=== PATIENT | male | born 1935 | race Caucasian/White ===

== ENCOUNTER 2016-07-25 10:06 | Emergency (ER) | payer MEDICARE, OTHER ==
--- NOTE | 2016-07-25 11:03 | ER Document Report ---
ED Medical Screen (RME) - General Chief Complaint: Dizziness Stated Complaint: DIZZINESS Time seen by provider: 11:00 Mode of Arrival: Wheelchair Information source: Patient, Relative TRAVEL OUTSIDE OF THE [place]. IN LAST 30 DAYS: No - HPI Patient complains to provider of: DIZZINESS Onset: Other - COUPLE OF DAYS Onset/Duration: Intermittent Quality of pain: No pain Severity: None Pain Level: Denies Associated Symptoms: Dizzy/lightheaded, Headache, Shortness of breath. denies: Chest pain, Fever Exacerbated by: Movement Relieved by: Remaining still Similar symptoms previously: No Recently seen / treated by doctor: No Notes: 07/25/16 11:03 RECENTLY VOMITING AND DIARRHEA OVER JUVENAL - Related Data Smoking: Non-smoker Frequency of alcohol use: None Drug Abuse: None Pertinent History: CAD DEMENTIA HTN VALVE REPLACEMENT CARDIAC BYPASS Allergies/Adverse Reactions: No Known Allergies Allergy (Verified 07/25/16 10:43) Past Medical History - Past Medical History Cardiac Medical History: Reports: Hx Hypercholesterolemia, Hx Hypertension Past Surgical History: Reports: Hx Cholecystectomy, Hx Coronary Artery Bypass Graft, Hx Valve Replacement Physical Exam - Vital signs Vitals: Temp Pulse Resp BP Pulse Ox 97.9 F 60 18 129/48 H 97 07/25/16 10:24 07/25/16 10:24 07/25/16 10:24 07/25/16 10:24 07/25/16 10:24 Course - Vital Signs Vital signs: Temp Pulse Resp BP Pulse Ox 97.9 F 60 18 129/48 H 97 07/25/16 10:24 07/25/16 10:24 07/25/16 10:24 07/25/16 10:24 07/25/16 10:24
[2016-07-25 12:04] LABS: ABSOLUTE BASOPHILS # (AUTO) 0.1 10^3/uL (0.0-0.2); ABSOLUTE EOSINOPHILS # (AUTO) 0.2 10^3/uL (0.0-0.6); ABSOLUTE LYMPHOCYTES (AUTO) 1.4 10^3/uL (0.5-4.7); ABSOLUTE MONOCYTES (AUTO) 0.5 10^3/uL (0.1-1.4); ABSOLUTE NEUT (AUTO) 6.1 10^3/uL (1.7-8.2); BASOPHILS % (AUTO) 0.7 % (0-2); EOSINOPHILS % (AUTO) 2.1 % (0-6); HEMATOCRIT 36.7 % (37.9-51.0); HEMOGLOBIN 12.1 g/dL (13.5-17.0); HGB HCT DIFFERENCE -0.4; MEAN CORPUSCULAR HGB CONC 33.1 g/dL (32.0-36.0); MEAN CORPUSCULAR VOLUME 88 fl (80-97); MONOCYTES % (AUTO) 5.9 % (3-13); RED BLOOD COUNT 4.18 10^6/uL (4.35-5.55); RED CELL DISTRIBUTION WIDTH 13.3 % (11.5-14.0); SEGMENTED NEUTROPHILS % (AUTO) 74.3 % (42-78); WHITE BLOOD COUNT 8.2 10^3/uL (4.0-10.5)
[2016-07-25 12:19] LABS: ALANINE AMINOTRANSFERASE 33 U/L (21-72); ALBUMIN 3.4 g/dL (3.5-5.0); ALKALINE PHOSPHATASE 56 U/L (38-126); ANION GAP 12 (5-19); ASPARTATE AMINO TRANSFERASE 19 U/L (17-59); BILIRUBIN,TOTAL 0.4 mg/dL (0.2-1.3); BLOOD UREA NITROGEN 16 mg/dL (7-20); CALCIUM 9.1 mg/dL (8.4-10.2); CARBON DIOXIDE 28 mmol/L (22-30); CHLORIDE 104 mmol/L (98-107); CREATINE KINASE 25 U/L (55-170); CREATININE RESULT 0.82 mg/dL (0.52-1.25); GLUCOSE 90 mg/dL (75-110); POTASSIUM 4.2 mmol/L (3.6-5.0); SODIUM 143.5 mmol/L (137-145); TOTAL PROTEIN 6.7 g/dL (6.3-8.2)
[2016-07-25 12:31] LABS: CREATINE KINASE MB 1.14 ng/mL (<4.55); TROPONIN I < 0.012 ng/mL
[2016-07-25 12:48] LABS: PROTHROMBIN TIME 51.8 SEC (11.4-15.4)
--- NOTE | 2016-07-25 13:09 | ER Document Report ---
ED General - General Chief Complaint: Dizziness Stated Complaint: DIZZINESS Mode of Arrival: Wheelchair Notes: This is an 81-year-old male who is on Coumadin due to a mechanical valve who presents complaining of an abnormal INR. He was sent from the [place] where his INR was reportedly greater than 7. He did have a nosebleed this morning which stopped after a few seconds of holding pressure. He had reported feeling dizzy earlier today but states he is feeling fine at this time. No recent trauma. He has not hit his head. No visual changes. No nausea or vomiting. No focal numbness, weakness or tingling. He denies any hematuria or any GI bleeding. TRAVEL OUTSIDE OF THE [place] IN LAST 30 DAYS: No - HPI Quality of pain: No pain - Related Data Allergies/Adverse Reactions: No Known Allergies Allergy (Verified 07/25/16 10:43) Past Medical History - General Information source: Patient, Relative - Social History Smoking Status: Never Smoker Frequency of alcohol use: None Drug Abuse: None Lives with: Family, Spouse/Significant other Family History: Reviewed & Not Pertinent Patient has suicidal ideation: No Patient has homicidal ideation: No - Past Medical History Cardiac Medical History: Reports: Hx Hypercholesterolemia, Hx Hypertension Past Surgical History: Reports: Hx Cholecystectomy, Hx Coronary Artery Bypass Graft, Hx Valve Replacement Review of Systems - Review of Systems Constitutional: denies: Fever EENT: denies: Double vision, Throat pain, Difficulty swallowing Cardiovascular: denies: Syncope Respiratory: denies: Short of breath Gastrointestinal: denies: Vomiting, Black stools Genitourinary: denies: Hematuria Musculoskeletal: denies: Leg swelling Skin: denies: Rash Neurological/Psychological: denies: Numbness, Tingling Physical Exam - Vital signs Vitals: Temp Pulse Resp BP Pulse Ox 97.9 F 60 18 129/48 H 97 07/25/16 10:24 07/25/16 10:24 07/25/16 10:24 07/25/16 10:24 07/25/16 10:24 - Notes Notes: GENERAL: Well-appearing, well-nourished and in no acute distress. HEAD: Atraumatic, normocephalic. EYES: Pupils equal round and reactive to light, extraocular movements intact, sclera anicteric, conjunctiva are normal. ENT: nares patent- there is some dried blood in the right nostril, oropharynx clear without exudates. Moist mucous membranes. NECK: Normal range of motion, supple without lymphadenopathy or JVD. LUNGS: Breath sounds clear to auscultation bilaterally and equal. No wheezes rales or rhonchi. HEART: Regular rate and rhythm, positive murmur ABDOMEN: Soft, nontender, normoactive bowel sounds. No guarding, no rebound. No masses appreciated. EXTREMITIES: Normal range of motion, no pitting or edema. No clubbing or cyanosis. NEUROLOGICAL: Cranial nerves II through XII grossly intact. Normal speech, normal strength 4 extremities PSYCH: Normal mood, normal affect. SKIN: Warm, Dry, normal turgor, no rashes or lesions noted. Course - Re-evaluation Re-evalutation: 07/25/16 14:30 Mildly supratherapeutic INR with no active bleeding. Head CT is negative. We will allow his INR to drift down by holding Coumadin for 2 doses and have him follow-up for recheck in 2 days. - Vital Signs Vital signs: Temp Pulse Resp BP Pulse Ox 98.2 F 60 17 133/53 H 96 07/25/16 14:12 07/25/16 10:24 07/25/16 14:12 07/25/16 14:12 07/25/16 14:12 - Laboratory Result Diagrams: 07/25/16 11:31 07/25/16 11:31 Laboratory results interpreted by me: 07/25/16 07/25/16 07/25/16 11:31 11:31 11:31 RBC 4.18 L Hgb 12.1 L Hct 36.7 L PT 51.8 H* INR 5.37 H* Creatine Kinase 25 L Albumin 3.4 L Discharge - Discharge Clinical Impression: Dizziness, Supratherapeutic INR Condition: Good Disposition: HOME, SELF-CARE Additional Instructions: Hold Coumadin today (sunday) and tomorrow (sunday). Follow up on for re-check on INR and further reccomendations regarding your dose. RETURN to ER i fyou have any significant bleeding or injury. Referrals: SHAYE NGUYEN MD [Primary Care Provider] - Follow up as needed
--- NOTE | 2016-07-25 13:13 | EKG REPORT ---
SEVERITY:- ABNORMAL ECG - SINUS RHYTHM RIGHT BUNDLE BRANCH BLOCK : Confirmed by: Vahid Samano 25-Jul-2016 13:13:17
[2016-07-25 14:20] VITALS: BP 133/53
== END 2016-07-25 14:21 | disposition home or self-care (01) ==
LOC: ER 10:06
DX: R42 Dizziness and giddiness (principal); I10 Essential (primary) hypertension; Z95.1 Presence of aortocoronary bypass graft; Z95.2 Presence of prosthetic heart valve; Z79.01 Long term (current) use of anticoagulants
CPT/HCPCS: 36415; 70450; 71020; 80053; 82550; 82553; 84484; 85025; 85610; 93005; 93010; 99284

== ENCOUNTER 2017-05-13 03:31 | Emergency (ER) | payer MEDICARE, OTHER ==
--- NOTE | 2017-05-13 04:33 | ER Document Report ---
ED General <GABRIELA VILLAREALLINE - Last Filed: 05/13/17 13:22> - General TRAVEL OUTSIDE OF THE U.S. IN LAST 30 DAYS: No <JALEN DAMON - Last Filed: 05/13/17 19:05> - General Chief Complaint: Nausea/Vomiting Stated Complaint: NAUSEA,VOMITING Time Seen by Provider: 05/13/17 04:24 Notes: Patient is an 82-year-old male that comes emergency department for chief complaint of vomiting twice over the past 2 days, body aches, chills, and they believe he was running a fever. He is here with his family. He denies any current complaints. Family states he never complains about anything. He denies chest pain, shortness of breath, abdominal pain, flank pain, headache, sore throat. Past medical history of's triple bypass, mechanical heart valve on blood thinner, hypertension, cholecystectomy. He is not a diabetic. He has had the flu vaccination this season and is up-to-date on his pneumonia vaccination. He does not smoke. (JALEN DAMON) - Related Data Allergies/Adverse Reactions: No Known Allergies Allergy (Verified 07/25/16 10:43) Past Medical History - General Information source: Patient - Social History Smoking Status: Never Smoker Frequency of alcohol use: None Drug Abuse: None Lives with: Family Family History: Reviewed & Not Pertinent - Past Medical History Cardiac Medical History: Reports: Hx Hypercholesterolemia, Hx Hypertension Renal/ Medical History: Denies: Hx Peritoneal Dialysis Past Surgical History: Reports: Hx Cholecystectomy, Hx Coronary Artery Bypass Graft, Hx Valve Replacement <JALEN DAMON - Last Filed: 05/13/17 19:05> Review of Systems - Review of Systems Constitutional: See HPI EENT: No symptoms reported Cardiovascular: See HPI Respiratory: No symptoms reported Gastrointestinal: See HPI Genitourinary: No symptoms reported Male Genitourinary: No symptoms reported Musculoskeletal: No symptoms reported Skin: No symptoms reported Hematologic/Lymphatic: No symptoms reported Neurological/Psychological: No symptoms reported <JALEN DAMON - Last Filed: 05/13/17 19:05> Physical Exam - Vital signs Interpretation: Normal - General General appearance: Appears well, Alert In distress: None - HEENT Head: Normocephalic, Atraumatic Eyes: Normal Pupils: PERRL - Respiratory Respiratory status: No respiratory distress Chest status: Nontender Breath sounds: Normal Chest palpation: Normal - Cardiovascular Rhythm: Regular, Extrasystoles. No: Tachycardia Heart sounds: Normal auscultation, S1 appreciated, S2 appreciated Murmur: Yes - Heart murmur with clicking noted - Abdominal Inspection: Normal Distension: No distension Bowel sounds: Normal Tenderness: Nontender. No: Tender, Guarding Organomegaly: No organomegaly - Back Back: Normal, Nontender - Extremities General upper extremity: Normal inspection, Nontender, Normal color, Normal ROM , Normal temperature General lower extremity: Normal inspection, Nontender, Normal color, Normal ROM , Normal temperature, Normal weight bearing. No: Kelly's sign - Neurological Neuro grossly intact: Yes Cognition: Normal Orientation: AAOx4 Ketchum Coma Scale Eye Opening: Spontaneous Rima Coma Scale Verbal: Oriented Ketchum Coma Scale Motor: Obeys Commands Rima Coma Scale Total: 15 Speech: Normal Motor strength normal: LUE, RUE, LLE, RLE Sensory: Normal - Psychological Associated symptoms: Normal affect, Normal mood - Skin Skin Temperature: Warm Skin Moisture: Dry Skin Color: Normal <JALEN DAMON - Last Filed: 05/13/17 19:05> - Vital signs Vitals: Temp Pulse Resp BP Pulse Ox 98.6 F 62 16 114/32 L 93 05/13/17 03:56 05/13/17 03:56 05/13/17 03:56 05/13/17 03:56 05/13/17 03:56 Course - Laboratory Result Diagrams: 05/13/17 05:05 05/13/17 05:05 <DAYSI VILLAREAL - Last Filed: 05/13/17 13:22> - Laboratory Result Diagrams: 05/13/17 05:05 05/13/17 05:05 <JALEN DAMON - Last Filed: 05/13/17 19:05> - Re-evaluation Re-evalutation: 05/13/17 08:25 Patient resting quietly, continues to deny any chest pain, respirations unlabored and even, son-in-law at bedside, and vital signs stable. Awaiting repeat troponin. 05/13/17 09:02 Call placed to [facility] for transfer waiting for Dr. Aviles's response 05/13/17 09:[address] Сергей Aviles who has agreed to take the patient for non- STEMI with no chest pain at this time. Patient will be transferred to [facility]. Awaiting transfer call back for bed placement. 05/13/17 13:22 EMS at bedside for transfer to [facility]. Patient continues to deny any discomfort. He states he does not have any chest pain no nausea no vomiting no abdominal pain. He is on the stretcher and ready to go to [facility] for a non-STEMI. Respirations regular even unlabored and speaking in full sentences. at the bedside. (DAYSI VILLAREAL) EKG showing sinus rhythm at a rate of 73 with PACs present, right bundle branch block consistent with prior, no ST segment changes or T-wave inversions in consecutive leads, no significant change from prior. Chest x-ray unremarkable. Patient with no complaints on my examination, soft abdomen. Leukocytosis at 19.6, however this is nonspecific with no fever, no tachycardia , no hypotension, soft abdomen, chest x-ray unremarkable, urinalysis unremarkable other than showing evidence of dehydration. Could be secondary to vomiting. Troponin elevated above [place] cut off at 0.149. Patient given aspirin. His PT/INR is therapeutic for his mechanical heart valve. Discussed with Dr. Bush. Concerning for NSTEMI. Discussed with family, they prefer [facility] to be consulted for transfer. Patient has had his triple bypass and mechanical heart valve surgeries done at this location. 05/13/17 06:[address] Wilburn, he requests that a troponin be repeated at 8 AM to help further clarify patient's status before determining his placement location. 05/13/17 06:58 Introduced to Daysi Villareal ALLERGY NURSE at bedside. No current patient complaints. (JALEN DAMON) - Vital Signs Vital signs: Temp Pulse Resp BP Pulse Ox 98.6 F 62 15 128/87 H 97 05/13/17 03:56 05/13/17 03:56 05/13/17 13:08 05/13/17 13:08 05/13/17 10:31 - Laboratory Laboratory results interpreted by me: 05/13/17 05/13/17 05/13/17 05:05 05:05 05:05 WBC 19.6 H RBC 4.15 L Hgb 12.3 L Hct 36.1 L RDW 14.1 H Seg Neuts % (Manual) 96 H Band Neutrophils % 1 L Lymphocytes % (Manual) 3 L Monocytes % (Manual) 0 L Abs Neuts (Manual) 19.0 H Abs Monocytes (Manual) 0.0 L PT 35.6 H Chloride 97 L BUN 27 H Creatinine 1.33 H Est GFR (Non-Af Amer) 51 L Glucose 114 H Lipase 21.9 L Discharge <DAYSI VILLAREAL - Last Filed: 05/13/17 13:22> <JALEN DAMON - Last Filed: 05/13/17 19:05> - Discharge Clinical Impression: NSTEMI (non-ST elevated myocardial infarction) Vomiting Qualifiers: Vomiting type: unspecified Vomiting Intractability: non-intractable Nausea presence: unspecified Qualified Code(s): R11.10 - Vomiting, unspecified Condition: Stable Disposition: [facility] Referrals: SHAYE NGUYEN MD [Primary Care Provider] - Follow up as needed
--- NOTE | 2017-05-13 05:14 | RADIOLOGY REPORT (SQ) ---
EXAM DESCRIPTION: CHEST SINGLE VIEW COMPLETED DATE/TIME: 05/13/2017 4:55 am REASON FOR STUDY: fever COMPARISON: Chest x-ray 07/25/2016. EXAM PARAMETERS: NUMBER OF VIEWS: One view. TECHNIQUE: Single frontal radiographic view of the chest acquired. RADIATION DOSE: NA LIMITATIONS: None. FINDINGS: LUNGS AND PLEURA: There are low lung volumes with bronchovascular crowding. Mild left bas ilar atelectasis. No sizable pleural effusion. MEDIASTINUM AND HILAR STRUCTURES: No masses. Contour normal. HEART AND VASCULAR STRUCTURES: Heart normal in size. Normal vasculature. BONES: No acute findings. HARDWARE: Sternotomy wires and cardiac valve prosthesis are noted. IMPRESSION: Low lung volumes. Mild left basilar atelectasis. TECHNICAL DOCUMENTATION: JOB ID: [id number]
[2017-05-13 05:42] LABS: HEMATOCRIT 36.1 % (37.9-51.0); HEMOGLOBIN 12.3 g/dL (13.5-17.0); HGB HCT DIFFERENCE 0.8; MEAN CORPUSCULAR HEMOGLOBIN 29.7 pg (27.0-33.4); MEAN CORPUSCULAR HGB CONC 34.2 g/dL (32.0-36.0); MEAN CORPUSCULAR VOLUME 87 fl (80-97); RED BLOOD COUNT 4.15 10^6/uL (4.35-5.55); RED CELL DISTRIBUTION WIDTH 14.1 % (11.5-14.0); WHITE BLOOD COUNT 19.6 10^3/uL (4.0-10.5)
[2017-05-13 05:46] LABS: ALANINE AMINOTRANSFERASE 26 U/L (21-72); ALKALINE PHOSPHATASE 64 U/L (38-126); ASPARTATE AMINO TRANSFERASE 21 U/L (17-59); BILIRUBIN,DIRECT 0.4 mg/dL (0.0-0.4); BILIRUBIN,TOTAL 0.9 mg/dL (0.2-1.3); BLOOD UREA NITROGEN 27 mg/dL (7-20); CALCIUM 9.1 mg/dL (8.4-10.2); CARBON DIOXIDE 29 mmol/L (22-30); CHLORIDE 97 mmol/L (98-107); CREATININE RESULT 1.33 mg/dL (0.52-1.25); GLUCOSE 114 mg/dL (75-110); LIPASE 21.9 U/L (23-300); POTASSIUM 4.3 mmol/L (3.6-5.0); TOTAL PROTEIN 6.9 g/dL (6.3-8.2)
[2017-05-13 05:51] LABS: APPEARANCE,URINE CLEAR; BILIRUBIN,URINE NEGATIVE (NEGATIVE); GLUCOSE, URINE NEGATIVE (NEGATIVE); KETONES,URINE NEGATIVE (NEGATIVE); LEUKOCYTE ESTERASE,URINE NEGATIVE (NEGATIVE); NITRITE,URINE NEGATIVE (NEGATIVE); PROTEIN,URINE NEGATIVE (NEGATIVE); URINE SPECIFIC GRAVITY 1.031; UROBILINOGEN,URINE NEGATIVE mg/dL (<2.0)
[2017-05-13 05:51] LABS: ANION GAP 11 (5-19); SODIUM 137.3 mmol/L (137-145)
[2017-05-13] MEDS ORDERED: NORMAL SALINE 1000 ML 500 ML IV ONE (05:56)
[2017-05-13] MEDS ORDERED: ASPIRIN 81 MG TABLET, CHEWABLE PO ONE (06:01)
[2017-05-13 06:13] LABS: BAND NEUTROPHILS % (MANUAL) 1 % (3-5); BASOPHILS % (MANUAL) 0 % (0-2); EOSINOPHILS % (MANUAL) 0 % (0-6); LYMPHOCYTES % (MANUAL) 3 % (13-45); TOTAL CELLS COUNTED 100
[2017-05-13 06:14] LABS: RBC MORPHOLOGY COMMENT NORMO-CYTIC/CHROMIC
[2017-05-13 06:17] LABS: PROTHROMBIN TIME 35.6 SEC (11.4-15.4)
--- NOTE | 2017-05-13 09:18 | EKG REPORT ---
SEVERITY:- ABNORMAL ECG - SINUS RHYTHM MULTIPLE ATRIAL PREMATURE COMPLEXES RIGHT BUNDLE BRANCH BLOCK : Confirmed by: Lucille De Anda MD 13-May-2017 09:17:56
[2017-05-13 13:14] VITALS: BP 128/87
== END 2017-05-13 13:15 | disposition short-term general hospital (02) ==
LOC: ER 03:31
DX: I21.4 Non-ST elevation (NSTEMI) myocardial infarction (principal); R11.2 Nausea with vomiting, unspecified; D72.829 Elevated white blood cell count, unspecified; R68.83 Chills (without fever); I49.1 Atrial premature depolarization; I45.10 Unspecified right bundle-branch block; I10 Essential (primary) hypertension; Z95.1 Presence of aortocoronary bypass graft; Z95.2 Presence of prosthetic heart valve; Z79.01 Long term (current) use of anticoagulants; Z90.49 Acquired absence of other specified parts of digestive tract
CPT/HCPCS: 93005; 99285; 51701; 36415; 87040; 82553; 82550; 83690; 85025; 85610; 80053; 81001; 84484; 83605; 87804; 71010; 93010; A9270; J7030

== ENCOUNTER 2017-10-10 11:41 | Emergency (ER) | payer MEDICARE, OTHER ==
[2017-10-10] MEDS ORDERED: DILTIAZEM HCL INJ 25 MG/5 ML VIAL ONE (12:15)
[2017-10-10] MEDS ORDERED: DILTIAZEM HCL/D5W 125 MG/125 ML RTUINJ IV ONE (12:16)
[2017-10-10] MEDS ORDERED: NORMAL SALINE 1000 ML 1,000 ML IV ONE (12:20)
--- NOTE | 2017-10-10 12:22 | ER Document Report ---
ED Cardiac - General Chief Complaint: Chest Pain Stated Complaint: CHEST PAIN Time Seen by Provider: 10/10/17 12:18 Notes: The patient is an 82-year-old male, past medical history CABG and mechanical aortic valve replacement in 2001 on Coumadin, dementia, HTN, presents from his control operator's office, Dr. Celis, after he was noticed to be in atrial fibrillation with RVR for an unknown time. Patient had a brief episode of left- sided chest pain last night, but is no longer having any chest pain or any other symptoms at this time. He denies numbness, tingling, syncope, chest pain , shortness of breath, nausea, vomiting, fevers, leg swelling or headache. TRAVEL OUTSIDE OF THE [place].S. IN LAST 30 DAYS: No - Related Data Allergies/Adverse Reactions: No Known Allergies Allergy (Verified 07/25/16 10:43) Past Medical History - General Information source: Patient - Social History Smoking Status: Unknown if Ever Smoked Family History: Reviewed & Not Pertinent - Past Medical History Cardiac Medical History: Reports: Hx Hypercholesterolemia, Hx Hypertension Renal/ Medical History: Denies: Hx Peritoneal Dialysis Past Surgical History: Reports: Hx Cholecystectomy, Hx Coronary Artery Bypass Graft, Hx Valve Replacement Review of Systems - Review of Systems Notes: REVIEW OF SYSTEMS: CONSTITUTIONAL: -fevers, -chills EENT: -eye pain, -difficulty swallowing, -nasal congestion CARDIOVASCULAR: +chest pain, -syncope. RESPIRATORY: -cough, -SOB GASTROINTESTINAL: -abdominal pain, -nausea, -vomiting, -diarrhea GENITOURINARY: -dysuria, -hematuria MUSCULOSKELETAL: -back pain, -neck pain SKIN: -rash or skin lesions. HEMATOLOGIC: -easy bruising or bleeding. LYMPHATIC: -swollen, enlarged glands. NEUROLOGICAL: -altered mental status or loss of consciousness, -headache, - neurologic symptoms PSYCHIATRIC: -anxiety, -depression. ALL OTHER SYSTEMS REVIEWED AND NEGATIVE. Physical Exam - Vital signs Vitals: Resp Pulse Ox 22 H 99 10/10/17 12:02 10/10/17 12:02 - Notes Notes: PHYSICAL EXAMINATION: GENERAL: Well-appearing, well-nourished and in no acute distress. HEAD: Atraumatic, normocephalic. EYES: Pupils equal round and reactive to light, extraocular movements intact, sclera anicteric, conjunctiva are normal. ENT: nares patent, oropharynx clear without exudates. Moist mucous membranes. NECK: Normal range of motion, supple without lymphadenopathy LUNGS: Breath sounds clear to auscultation bilaterally and equal. No wheezes rales or rhonchi. HEART: Irregularly irregular rhythm. ABDOMEN: Soft, nontender, normoactive bowel sounds. No guarding, no rebound. No masses appreciated. EXTREMITIES: Normal range of motion, no pitting or edema. No cyanosis. NEUROLOGICAL: Cranial nerves grossly intact. Normal speech, normal gait. Normal sensory and motor exams. PSYCH: Normal mood, normal affect. SKIN: Warm, Dry, normal turgor, no rashes or lesions noted. Course - Re-evaluation Re-evalutation: Patient with a brief episode of chest pain last night that quickly resolved. He is in A. fib RVR on arrival to the ER with normal blood pressure and he is currently asymptomatic. His INR is therapeutic. Troponin is 2.7. EKG shows A. fib w/ RVR. Diltiazem provided to patient and will start him on a diltiazem drip. Patient requires transfer to facility with peanut farmer for further evaluation and treatment. His cardiac surgeon is at [facility] and he was just discharged a few months ago from [facility] for a possible NSTEMI. 10/10/17 13:33 Called [facility] to initiate transfer for NSTEMI. 10/10/17 14:[address] Aviles ([facility] Hospitalist) and he has accepted patient. Pt's HR is in 80's and BP is 95/65 (MAP 73) after Diltiazem bolus and drip. He continues without any chest pain or any other complaints. Repeat EKG does not show a STEMI. Spoke to his primary care physician, Dr. Martin, to update him. 10/10/17 15:55 Transport in ED. Pt's HR in 90's-low 100's and BP is 110/62. Pt continues without any symptoms. Stable for transport. - Vital Signs Vital signs: Temp Pulse Resp BP Pulse Ox 97.6 F 23 H 110/62 98 10/10/17 15:26 10/10/17 15:37 10/10/17 15:37 10/10/17 15:37 - Laboratory Result Diagrams: 10/10/17 12:05 10/10/17 12:05 Laboratory results interpreted by me: 10/10/17 10/10/17 10/10/17 12:05 12:05 12:05 WBC 10.8 H Hgb 13.1 L RDW 14.1 H PT 24.9 H APTT 66.6 H Creatine Kinase 260 H NT-Pro-B Natriuret Pep 10/10/17 12:05 WBC Hgb RDW PT APTT Creatine Kinase NT-Pro-B Natriuret Pep 6050 H - Diagnostic Test Radiology reviewed: Image reviewed, Reports reviewed Radiology results interpreted by me: CXR: NAD - EKG Interpretation by Me Rate: Tachycardia Rhythm: A.Fib When compared to previous EKG there are: Changes noted Critical Care Note - Critical Care Note Total time excluding time spent on procedures (mins): 45 Discharge - Discharge Clinical Impression: Atrial fibrillation with rapid ventricular response, NSTEMI (non-ST elevated myocardial infarction) Condition: Stable Disposition: [facility] Referrals: SHAYE MARTIN MD [Primary Care Provider] - Follow up as needed
[2017-10-10] MEDS ORDERED: DILTIAZEM HCL INJ 25 MG/5 ML VIAL IV ONE (12:35)
[2017-10-10] MEDS ORDERED: DILTIAZEM HCL/D5W 125 MG/125 ML RTUINJ IV PRN (12:35)
[2017-10-10] MEDS ORDERED: ASPIRIN 81 MG TABLET, CHEWABLE PO ONE (12:36)
[2017-10-10 12:37] LABS: ABSOLUTE EOSINOPHILS # (AUTO) 0.2 10^3/uL (0.0-0.6); ABSOLUTE LYMPHOCYTES (AUTO) 1.5 10^3/uL (0.5-4.7); ABSOLUTE MONOCYTES (AUTO) 1.1 10^3/uL (0.1-1.4); ABSOLUTE NEUT (AUTO) 7.9 10^3/uL (1.7-8.2); BASOPHILS % (AUTO) 0.3 % (0-2); EOSINOPHILS % (AUTO) 1.5 % (0-6); HEMATOCRIT 39.1 % (37.9-51.0); HEMOGLOBIN 13.1 g/dL (13.5-17.0); LYMPHOCYTES % (AUTO) 14.3 % (13-45); MEAN CORPUSCULAR HEMOGLOBIN 29.2 pg (27.0-33.4); MEAN CORPUSCULAR HGB CONC 33.4 g/dL (32.0-36.0); MEAN CORPUSCULAR VOLUME 87 fl (80-97); MONOCYTES % (AUTO) 10.2 % (3-13); PLATELET COUNT 301 10^3/uL (150-450); RED BLOOD COUNT 4.48 10^6/uL (4.35-5.55); RED CELL DISTRIBUTION WIDTH 14.1 % (11.5-14.0); SEGMENTED NEUTROPHILS % (AUTO) 73.7 % (42-78); TOTAL CELLS COUNTED % (AUTO) 100 %; WHITE BLOOD COUNT 10.8 10^3/uL (4.0-10.5)
[2017-10-10 12:47] LABS: INTERNATIONAL RATION (INR) 2.12; PROTHROMBIN TIME 24.9 SEC (11.4-15.4)
[2017-10-10 12:48] LABS: PARTIAL THROMBOPLASTIN TIME 66.6 SEC (23.5-35.8)
[2017-10-10 12:52] LABS: ALANINE AMINOTRANSFERASE 30 U/L (21-72); ALBUMIN 3.9 g/dL (3.5-5.0); ALKALINE PHOSPHATASE 59 U/L (38-126); ANION GAP 11 (5-19); ASPARTATE AMINO TRANSFERASE 40 U/L (17-59); BILIRUBIN,DIRECT 0.4 mg/dL (0.0-0.4); BILIRUBIN,TOTAL 0.9 mg/dL (0.2-1.3); BLOOD UREA NITROGEN 20 mg/dL (7-20); CALCIUM 9.1 mg/dL (8.4-10.2); CARBON DIOXIDE 26 mmol/L (22-30); CHLORIDE 104 mmol/L (98-107); CREATINE KINASE 260 U/L (55-170); GLUCOSE 93 mg/dL (75-110); POTASSIUM 4.1 mmol/L (3.6-5.0); SODIUM 141.3 mmol/L (137-145); TOTAL PROTEIN 6.9 g/dL (6.3-8.2)
--- NOTE | 2017-10-10 13:02 | RADIOLOGY REPORT (SQ) ---
EXAM DESCRIPTION: CHEST SINGLE VIEW COMPLETED DATE/TIME: 10/10/2017 12:43 pm REASON FOR STUDY: chest pain COMPARISON: April 2017 EXAM PARAMETERS: NUMBER OF VIEWS: One view. TECHNIQUE: Single frontal radiographic view of the chest acquired. RADIATION DOSE: NA LIMITATIONS: Patient has again made a shallow inspiration FINDINGS: LUNGS AND PLEURA: No opacities, masses or pneumothorax. No pleural effusion. MEDIASTINUM AND HILAR STRUCTURES: No masses. Contour normal. HEART AND VASCULAR STRUCTURES: The cardiac silhouette is partially obscured but appears unchanged BONES: No acute findings. HARDWARE: Patient is status post median sternotomy with aortic valve replacement OTHER: No other significant finding. IMPRESSION: No significant interval change. No acute findings. Other findings as noted above TECHNICAL DOCUMENTATION: JOB ID: [id number] [employer]- All Rights Reserved Reading location - IP/workstation name: [email or web address]
[2017-10-10 13:22] LABS: TROPONIN I 2.71 ng/mL
[2017-10-10 15:48] VITALS: BP 110/62
--- NOTE | 2017-10-10 22:57 | EKG REPORT ---
SEVERITY:- ABNORMAL ECG - ATRIAL FIBRILLATION, V-RATE 65-117 RIGHT BUNDLE BRANCH BLOCK : Confirmed by: Vahid Samano 10-Oct-2017 22:56:50
--- NOTE | 2017-10-10 22:58 | EKG REPORT ---
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
== END 2017-10-10 16:01 | disposition short-term general hospital (02) ==
LOC: ER 11:41
DX: I48.91 Unspecified atrial fibrillation (principal); I21.4 Non-ST elevation (NSTEMI) myocardial infarction; I10 Essential (primary) hypertension; Z79.01 Long term (current) use of anticoagulants; Z95.2 Presence of prosthetic heart valve; Z95.1 Presence of aortocoronary bypass graft
CPT/HCPCS: 93005; 99291; 96361; 96365; 96366; 36415; 82550; 85025; 85610; 85730; 80053; 84484; 83880; 71045; 93010; A9270; J3490 ×2; J7030

== ENCOUNTER → 2017-11-22 | Outpatient (CLI) | payer MEDICARE, OTHER ==
[2017-11-22 10:50] LABS: ALANINE AMINOTRANSFERASE 22 U/L (21-72); ALBUMIN 4.1 g/dL (3.5-5.0); ALKALINE PHOSPHATASE 66 U/L (38-126); ASPARTATE AMINO TRANSFERASE 25 U/L (17-59); BILIRUBIN,DIRECT 0.3 mg/dL (0.0-0.4); BILIRUBIN,TOTAL 0.7 mg/dL (0.2-1.3); CHOLESTEROL 127.62 mg/dL (0-200); CREATINE KINASE 59 U/L (55-170); TOTAL PROTEIN 6.9 g/dL (6.3-8.2); TRIGLYCERIDES 72 mg/dL (<150)
[2017-11-22 11:01] LABS: DIRECT LDL 68 mg/dL (<100)
== END ==
LOC: OD 09:28
PROVIDERS: ATTEND Internal Medicine Cardiovascular Disease
DX: E78.2 Mixed hyperlipidemia (principal); R07.9 Chest pain, unspecified; I48.91 Unspecified atrial fibrillation; Z79.899 Other long term (current) drug therapy
CPT/HCPCS: 36415; 80061; 80076; 82550; 84443

== ENCOUNTER → 2018-04-24 | Outpatient (CLI) | payer MEDICARE, OTHER ==
[2018-04-24 10:50] LABS: ANION GAP 6 (5-19); BLOOD UREA NITROGEN 21 mg/dL (7-20); CARBON DIOXIDE 29 mmol/L (22-30); CHLORIDE 105 mmol/L (98-107); GLUCOSE 96 mg/dL (75-110); POTASSIUM 4.5 mmol/L (3.6-5.0); SODIUM 140.4 mmol/L (137-145)
== END ==
LOC: OD 09:21
PROVIDERS: ATTEND Internal Medicine Cardiovascular Disease
DX: R42 Dizziness and giddiness (principal)
CPT/HCPCS: 36415; 80048

== ENCOUNTER → 2018-09-06 | Outpatient (CLI) | payer MEDICARE, OTHER ==
[2018-09-06 11:06] LABS: ALANINE AMINOTRANSFERASE 19 U/L (21-72); ALBUMIN 4.2 g/dL (3.5-5.0); ALKALINE PHOSPHATASE 84 U/L (38-126); ANION GAP 6 (5-19); ASPARTATE AMINO TRANSFERASE 21 U/L (17-59); BILIRUBIN,DIRECT 0.3 mg/dL (0.0-0.4); BILIRUBIN,TOTAL 0.6 mg/dL (0.2-1.3); BLOOD UREA NITROGEN 17 mg/dL (7-20); CALCIUM 9.2 mg/dL (8.4-10.2); CARBON DIOXIDE 32 mmol/L (22-30); CHLORIDE 106 mmol/L (98-107); CHOLESTEROL 138.58 mg/dL (0-200); GLUCOSE 95 mg/dL (75-110); POTASSIUM 4.4 mmol/L (3.6-5.0); SODIUM 143.7 mmol/L (137-145); TOTAL PROTEIN 6.9 g/dL (6.3-8.2); TRIGLYCERIDES 85 mg/dL (<150)
[2018-09-06 11:16] LABS: DIRECT LDL 84 mg/dL (<100)
== END ==
LOC: OD 09:38
PROVIDERS: ATTEND Physician Assistant
DX: I10 Essential (primary) hypertension (principal); I65.23 Occlusion and stenosis of bilateral carotid arteries; E78.2 Mixed hyperlipidemia; Z79.899 Other long term (current) drug therapy
CPT/HCPCS: 36415; 80048; 80061; 80076

== ENCOUNTER → 2018-12-20 | Outpatient (CLI) | payer MEDICARE, OTHER ==
[2018-12-20 09:26] LABS: ALANINE AMINOTRANSFERASE 19 U/L (21-72); ALBUMIN 3.9 g/dL (3.5-5.0); ALKALINE PHOSPHATASE 86 U/L (38-126); ANION GAP 7 (5-19); ASPARTATE AMINO TRANSFERASE 22 U/L (17-59); BILIRUBIN,DIRECT 0.3 mg/dL (0.0-0.4); BILIRUBIN,TOTAL 0.5 mg/dL (0.2-1.3); BLOOD UREA NITROGEN 19 mg/dL (7-20); CARBON DIOXIDE 28 mmol/L (22-30); CHLORIDE 108 mmol/L (98-107); CHOLESTEROL 186.96 mg/dL (0-200); GLUCOSE 97 mg/dL (75-110); POTASSIUM 4.5 mmol/L (3.6-5.0); TOTAL PROTEIN 6.9 g/dL (6.3-8.2); TRIGLYCERIDES 142 mg/dL (<150)
[2018-12-20 09:37] LABS: DIRECT LDL 123 mg/dL (<100)
== END ==
LOC: LAB 08:44
PROVIDERS: ATTEND Physician Assistant
DX: E78.2 Mixed hyperlipidemia (principal); I10 Essential (primary) hypertension; Z79.899 Other long term (current) drug therapy
CPT/HCPCS: 36415; 80048; 80061; 80076

== ENCOUNTER → 2019-06-27 | Outpatient (CLI) | payer MEDICARE, OTHER ==
[2019-06-27 09:23] LABS: ANION GAP 7 (5-19); BLOOD UREA NITROGEN 25 mg/dL (7-20); CALCIUM 9.3 mg/dL (8.4-10.2); CARBON DIOXIDE 28 mmol/L (22-30); CHLORIDE 109 mmol/L (98-107); GLUCOSE 97 mg/dL (75-110); POTASSIUM 4.1 mmol/L (3.6-5.0)
== END ==
LOC: LAB 08:29
PROVIDERS: ATTEND Physician Assistant
DX: I10 Essential (primary) hypertension (principal); Z79.899 Other long term (current) drug therapy
CPT/HCPCS: 36415; 80048

== ENCOUNTER 2019-07-24 12:27 | Emergency (ER) | payer MEDICARE, OTHER ==
--- NOTE | 2019-07-24 13:25 | ER Document Report ---
ED Medical Screen (RME) - General Chief Complaint: Cough Stated Complaint: COUGH,CONGESTION Time Seen by Provider: 07/24/19 13:22 Primary Care Provider: SHAYE NGUYEN MD [Primary Care Provider] - Follow up as needed TRAVEL OUTSIDE OF THE U.S. IN LAST 30 DAYS: No - HPI Notes: 07/24/19 13:25 Patient is an 84-year-old male with a history of hypertension, CHF who presents complaining of a dry cough for the past 2 days. No fever, chest pain, abdominal pain, nausea/vomiting. He is not on oxygen at home. I have treated and performed a rapid initial assessment of this patient. A comprehensive ED assessment and evaluation of the patient, analysis of test results and completion of medical decision making process will be conducted by additional ED providers. PHYSICAL EXAMINATION: GENERAL: Well-appearing, well-nourished and in no acute distress. A&Ox4. Answers questions appropriately. Lungs: There is expiratory wheeze noted to left lung. No retractions. Ext: no edema. - Related Data Allergies/Adverse Reactions: No Known Allergies Allergy (Verified 07/25/16 10:43) Past Medical History - Past Medical History Cardiac Medical History: Reports: Hx Hypercholesterolemia, Hx Hypertension Renal/ Medical History: Denies: Hx Peritoneal Dialysis Past Surgical History: Reports: Hx Cardiac Catheterization, Hx Cardiac Surgery - bypass and stent, Hx Cholecystectomy, Hx Coronary Artery Bypass Graft, Hx Valve Replacement Physical Exam - Vital signs Vitals: Temp Pulse Resp BP Pulse Ox 98.1 F 113 H 18 128/79 H 91 L 07/24/19 12:37 07/24/19 12:37 07/24/19 12:37 07/24/19 12:37 07/24/19 12:37 Course - Vital Signs Vital signs: Temp Pulse Resp BP Pulse Ox 98.1 F 113 H 18 128/79 H 91 L 07/24/19 12:37 07/24/19 12:37 07/24/19 12:37 07/24/19 12:37 07/24/19 12:37 Doctor's Discharge - Discharge Referrals: SHAYE NGUYEN MD [Primary Care Provider] - Follow up as needed
--- NOTE | 2019-07-24 14:31 | RADIOLOGY REPORT (SQ) ---
EXAM DESCRIPTION: CHEST 2 VIEWS COMPLETED DATE/TIME: 07/24/2019 2:20 pm REASON FOR STUDY: Cough COMPARISON: 07/25/2016 TECHNIQUE: Frontal and lateral radiographic views of the chest acquired. NUMBER OF VIEWS: Two view. LIMITATIONS: None. FINDINGS: LUNGS AND PLEURA: No pneumothorax. Mild bronchial wall thickening. Similar basilar subpl eural scarring bilaterally. No acute consolidation or pleural effusion. MEDIASTINUM AND HILAR STRUCTURES: Stable. HEART AND VASCULAR STRUCTURES: Stable. BONES: No acute findings. HARDWARE: Sternotomy-AVR. OTHER: No other significant finding. IMPRESSION: Mild bronchial wall thickening. Similar basilar subpleural scarring bilaterally. No ac napaimute consolidation or pleural effusion. TECHNICAL DOCUMENTATION: JOB ID: [id number] [employer]- All Rights Reserved Reading location - IP/workstation name: [email or web address]
--- NOTE | 2019-07-24 14:48 | EKG REPORT ---
SEVERITY:- ABNORMAL ECG - ATRIAL FLUTTER, A-RATE 263 RBBB AND LAFB CONSIDER OLD LATERAL MS : Confirmed by: Johnny Reddy MD 24-Jul-2019 14:47:26
[2019-07-24 14:54] LABS: VENOUS BLOOD BASE EXCESS 5.6 mmol/L; VENOUS BLOOD PCO2 59.8 mmHg (35-63); VENOUS BLOOD PH 7.36 (7.30-7.42)
[2019-07-24 15:04] LABS: ABSOLUTE LYMPHOCYTES (AUTO) 0.9 10^3/uL (0.5-4.7); ABSOLUTE MONOCYTES (AUTO) 0.5 10^3/uL (0.1-1.4); ABSOLUTE NEUT (AUTO) 4.1 10^3/uL (1.7-8.2); BASOPHILS % (AUTO) 0.7 % (0-2); EOSINOPHILS % (AUTO) 0.6 % (0-6); HEMATOCRIT 36.2 % (37.9-51.0); HEMOGLOBIN 12.2 g/dL (13.5-17.0); LYMPHOCYTES % (AUTO) 15.7 % (13-45); MEAN CORPUSCULAR HEMOGLOBIN 29.9 pg (27.0-33.4); MEAN CORPUSCULAR HGB CONC 33.8 g/dL (32.0-36.0); MEAN CORPUSCULAR VOLUME 88 fl (80-97); MONOCYTES % (AUTO) 9.2 % (3-13); PLATELET COUNT 233 10^3/uL (150-450); RED CELL DISTRIBUTION WIDTH 14.5 % (11.5-14.0); SEGMENTED NEUTROPHILS % (AUTO) 73.8 % (42-78); TOTAL CELLS COUNTED % (AUTO) 100 %; WHITE BLOOD COUNT 5.6 10^3/uL (4.0-10.5)
[2019-07-24 15:20] LABS: ALKALINE PHOSPHATASE 88 U/L (38-126); ANION GAP 6 (5-19); ASPARTATE AMINO TRANSFERASE 30 U/L (17-59); BILIRUBIN,DIRECT 0.3 mg/dL (0.0-0.4); BILIRUBIN,TOTAL 0.9 mg/dL (0.2-1.3); BLOOD UREA NITROGEN 23 mg/dL (7-20); CARBON DIOXIDE 32 mmol/L (22-30); CHLORIDE 104 mmol/L (98-107); GLUCOSE 95 mg/dL (75-110); POTASSIUM 4.4 mmol/L (3.6-5.0); TOTAL PROTEIN 7.2 g/dL (6.3-8.2)
[2019-07-24 15:32] LABS: TROPONIN I 0.022 ng/mL
[2019-07-24] MEDS ORDERED: METHYLPREDNISOLONE INJ 125 MG/2 ML SDV IV ONE (16:34)
[2019-07-24] MEDS ORDERED: CEFTRIAXONE 1 GM/D5W RTU 1 GM/50 ML RTUPB IV ONE (16:35)
[2019-07-24] MEDS ORDERED: IPRATROPIUM/ALBUTEROL 0.5-2.5 MG/3 ML AMPUL NEB ONE (16:36)
--- NOTE | 2019-07-24 16:37 | ER Document Report ---
ED Respiratory Problem - General Chief Complaint: Cough Stated Complaint: COUGH,CONGESTION Time Seen by Provider: 07/24/19 13:22 Primary Care Provider: SHAYE NGUYEN MD [Primary Care Provider] - Follow up as needed Mode of Arrival: Ambulatory Information source: Patient TRAVEL OUTSIDE OF THE [place] IN LAST 30 DAYS: No - HPI Patient complains to provider of: Cough Onset: Other - Past 2 days Duration: Intermittent episodes Initiating Event: URI, Other Quality of pain: No pain - Past 2 nights patient has been coughing up thin mucus white in color. Denies any fever chills. Denies any chest pain. No history of asthma. Severity: Moderate Pain Level: 0 Short of Breath: Moderate Cough: Productive Sputum amount: Small Sputum color: Clear, White At home treatment: Diuretics Similar symptoms previously: No Recently seen / treated by doctor: No Notes: No history of fever chills or productive cough worsening for the past 2 nights with the mucus thin in nature with white color. - Related Data Allergies/Adverse Reactions: No Known Allergies Allergy (Verified 07/25/16 10:43) Past Medical History - Social History Smoking Status: Former Smoker Frequency of alcohol use: None Drug Abuse: None Family History: Reviewed & Not Pertinent Patient has suicidal ideation: No Patient has homicidal ideation: No - Past Medical History Cardiac Medical History: Reports: Hx Atrial Fibrillation, Hx Hypercholes terolemia, Hx Hypertension Renal/ Medical History: Denies: Hx Peritoneal Dialysis Past Surgical History: Reports: Hx Cardiac Catheterization, Hx Cardiac Surgery - bypass and stent, Hx Cholecystectomy, Hx Coronary Artery Bypass Graft, Hx Valve Replacement Physical Exam - Vital signs Vitals: Temp Pulse Resp BP Pulse Ox 98.1 F 113 H 18 128/79 H 91 L 07/24/19 12:37 07/24/19 12:37 07/24/19 12:37 07/24/19 12:37 07/24/19 12:37 Interpretation: Normal - General General appearance: Appears well, Alert - HEENT Head: Normocephalic, Atraumatic Eyes: Normal Pupils: PERRL - Respiratory Respiratory status: No respiratory distress Chest status: Nontender Breath sounds: Normal, Rhonchi, Wheezing Chest palpation: Normal - Cardiovascular Rhythm: Regular, Irregularly irregular, Tachycardia Heart sounds: Normal auscultation Murmur: No - Abdominal Inspection: Normal Distension: No distension Bowel sounds: Normal Tenderness: Nontender Organomegaly: No organomegaly - Back Back: Normal, Nontender - Extremities General upper extremity: Normal inspection, Nontender, Normal color, Normal ROM, Normal temperature General lower extremity: Normal inspection, Nontender, Normal color, Normal ROM, Normal temperature, Normal weight bearing. No: Kelly's sign - Neurological Neuro grossly intact: Yes Cognition: Normal Orientation: AAOx4 [place] Coma Scale Eye Opening: Spontaneous [place] Coma Scale Verbal: Oriented [place] Coma Scale Motor: Obeys Commands Rima Coma Scale Total: 15 Speech: Normal Motor strength normal: LUE, RUE, LLE, RLE Sensory: Normal - Psychological Associated symptoms: Normal affect, Normal mood - Skin Skin Temperature: Warm Skin Moisture: Dry Skin Color: Normal Course - Vital Signs Vital signs: Temp Pulse Resp BP Pulse Ox 98.1 F 113 H 20 107/94 H 95 07/24/19 12:37 07/24/19 12:37 07/24/19 15:00 07/24/19 14:00 07/24/19 15:00 - Laboratory Result Diagrams: 07/24/19 14:36 07/24/19 14:36 Laboratory results interpreted by me: 07/24/19 07/24/19 07/24/19 14:36 14:36 14:36 RBC 4.10 L Hgb 12.2 L Hct 36.2 L RDW 14.5 H VBG HCO3 Carbon Dioxide 32 H BUN 23 H NT-Pro-B Natriuret Pep 734 H 07/24/19 14:36 RBC Hgb Hct RDW VBG HCO3 33.0 H Carbon Dioxide BUN NT-Pro-B Natriuret Pep - Diagnostic Test Radiology reviewed: Image reviewed, Reports reviewed - EKG Interpretation by Me When compared to previous EKG there are: No significant change Additional EKG results interpreted by me: 07/24/19 18:51 Twelve-lead EKG shows atrial fib flutter rate of 101 13 right bundle branch block and a left anterior fascicular block. No acute change from prior EKG of 2018 Discharge - Discharge Clinical Impression: Acute bronchitis with bronchospasm, Chronic atrial fibrillation with RVR Upper respiratory infection Qualifiers: URI type: unspecified viral URI Qualified Code(s): J06.9 - Acute upper respiratory infection, unspecified Condition: Good Disposition: HOME, SELF-CARE Additional Instructions: ATRIAL FIBRILLATION continue same other medications that you are taking on a daily basis Atrial fibrillation is an abnormal heart rhythm, caused by irregular electrical circuits in the upper heart chamber. It can be caused by heart valve disease, hardening of the arteries, or metabolic problems such as thyroid disease, or may occur without a clear cause. Atrial fibrillation may occur only occasionally, or may be chronic. Atrial fibrillation often results in a very fast heart rate, with palpitations, lightheadedness, and shortness of breath. Treatment is to slow the abnormally fast rate, and to convert the rhythm back to normal, if possible. Many patients stay in atrial fibrillation for years without symptoms or complications. Your doctor will decide whether you can be converted back to a normal heart rhythm. Contact the doctor or emergency medical system at once if you develop chest pain, shortness of breath, or severe lightheadedness, or if you develop any disturbance of consciousness, problems with speech, or localized weakness.Bronchitis with Bronchospasm (Wheezing) You have bronchitis with bronchospasm (wheezing). Sometimes people develop wheezing with a chest cold. This occurs either because of an underlying tendency toward asthma or because the virus itself irritates the bronchial tubes. This irritation causes cough, shortness of breath, and wheezing. Emergency treatment of bronchospasm may include adrenaline shots or bronchodilator aerosol. You may feel lightheaded and have a rapid pulse for an hour or two. Rest and get plenty of fluids. At home, we'll treat you with a bronchodilator inhaler. Corticosteroids may be required for some patients. Until you recover, avoid chemical fumes, dusts, pollens, and exercising in very cold or dry air. If you smoke, stop now! Most cases of bronchitis get better without antibiotics. We prescribe antibiotics when we believe bacteria are damaging your airways, or if there's high risk the bronchitis will worsen into pneumonia. Increase your fluid intake. A cool mist humidifier may make your lungs more comfortable. An expectorant (cough medicine that loosens phlegm) can help. Repeated episodes of bronchitis and bronchospasm may result in lung damage -- for example, chronic bronchitis, recurrent pneumonias, or emphysema. If you develop a fever, increased wheezing, chest pain, or severe shortness of breath, you should contact the doctor immediately. Prescriptions: Prednisone [Deltasone 10 mg Tablet] 10 mg PO BID #12 tablet Cefdinir [Omnicef 300 mg Capsule] 1 cap PO BID #20 capsule Referrals: SHAYE NGUYEN MD [Primary Care Provider] - Follow up as needed
[2019-07-24 19:10] VITALS: BP 143/84
[2019-07-24 19:34] LABS: A TYPE INFLUENZA AG NEGATIVE (NEGATIVE); B INFLUENZA AG NEGATIVE (NEGATIVE)
== END 2019-07-24 19:36 | disposition home or self-care (01) ==
LOC: ER 12:27
DX: J20.9 Acute bronchitis, unspecified (principal); J06.9 Acute upper respiratory infection, unspecified; B97.89 Other viral agents as the cause of diseases classified elsewhere; R05 Cough; I10 Essential (primary) hypertension; I45.2 Bifascicular block; I48.20 Chronic atrial fibrillation, unspecified; Z87.891 Personal history of nicotine dependence; Z79.899 Other long term (current) drug therapy
CPT/HCPCS: 93005; 94640; 99284; 96375; 96365; 36415; 85025; 80053; 84484; 82803; 87804; 83880; 71046; 93010; J2930; J0696; A9270; J7620

== ENCOUNTER → 2019-08-06 | Outpatient (CLI) | payer MEDICARE, OTHER ==
[2019-08-06 10:40] LABS: ANION GAP 8 (5-19); BLOOD UREA NITROGEN 26 mg/dL (7-20); CALCIUM 9.4 mg/dL (8.4-10.2); CARBON DIOXIDE 30 mmol/L (22-30); CHLORIDE 103 mmol/L (98-107); GLUCOSE 105 mg/dL (75-110); POTASSIUM 4.1 mmol/L (3.6-5.0)
== END ==
LOC: LAB 09:49
PROVIDERS: ATTEND Internal Medicine Cardiovascular Disease
DX: I48.91 Unspecified atrial fibrillation (principal); I25.10 Atherosclerotic heart disease of native coronary artery without angina pectoris; I10 Essential (primary) hypertension; R06.00 Dyspnea, unspecified
CPT/HCPCS: 36415; 80048; 83880; 84443

== ENCOUNTER 2019-08-12 11:29 | Emergency (ER) | payer OTHER, MEDICARE ==
--- NOTE | 2019-08-12 13:51 | RADIOLOGY REPORT (SQ) ---
EXAM DESCRIPTION: CT HEAD WITHOUT COMPLETED DATE/TIME: 08/12/2019 1:40 pm REASON FOR STUDY: minor head trauma COMPARISON: 07/25/2016. TECHNIQUE: Axial images acquired through the brain without intravenous contrast. Images reviewed wi th bone, brain and subdural windows. Additional sagittal and coronal reconstructions were generated. Images stored on PACS. All CT scanners at this facility use dose modulation, iterative reconstruction, and/or weight based d osing when appropriate to reduce radiation dose to as low as reasonably achievable (ALARA). [facility]: Dose Right [facility]: CareDose [facility]: Dose Right [facility]: Teradose 4D [facility]: [place] RADIATION DOSE: CT Rad equipment meets quality standard of care and radiation dose reduction techniq ues were employed. CTDIvol: 53.2 mGy. DLP: 1044 mGy-cm.mGy. LIMITATIONS: None. FINDINGS: VENTRICLES: Prominent. CEREBRUM: No masses. No hemorrhage. No midline shift. Areas of low density in the white matter mos t likely due to chronic micro-vascular ischemic change. No evidence for acute infarction. CEREBELLUM: No masses. No hemorrhage. No alteration of density. No evidence for acute infarction. EXTRAAXIAL SPACES: Age-related involutional change. No fluid collections. No masses. ORBITS AND GLOBE: No intra- or extraconal masses. Normal contour of globe without masses. CALVARIUM: No fracture. PARANASAL SINUSES: Fluid in the right maxillary sinus. SOFT TISSUES: No mass or hematoma. OTHER: No other significant finding. IMPRESSION: CHRONIC CHANGES OF ATROPHY AND MICROVASCULAR ISCHEMIA. NO ACUTE PROCESS. RIGHT MAXILLARY SINUS DISEASE. EVIDENCE OF ACUTE STROKE: NO. TECHNICAL DOCUMENTATION: JOB ID: [id number] Quality ID # [id number]: Final reports with documentation of one or more dose reduction techniques (e.g., Au tomated exposure control, adjustment of the mA and/or kV according to patient size, use of iterative reconstruction technique) 2010 [employer]- All Rights Reserved Reading location - IP/workstation name: [email or web address]
[2019-08-12 14:10] LABS: ABSOLUTE BASOPHILS # (AUTO) 0.1 10^3/uL (0.0-0.2); ABSOLUTE EOSINOPHILS # (AUTO) 0.2 10^3/uL (0.0-0.6); ABSOLUTE MONOCYTES (AUTO) 0.9 10^3/uL (0.1-1.4); ABSOLUTE NEUT (AUTO) 5.8 10^3/uL (1.7-8.2); BASOPHILS % (AUTO) 0.9 % (0-2); EOSINOPHILS % (AUTO) 2.2 % (0-6); HEMATOCRIT 37.9 % (37.9-51.0); HEMOGLOBIN 12.6 g/dL (13.5-17.0); LYMPHOCYTES % (AUTO) 12.9 % (13-45); MEAN CORPUSCULAR HEMOGLOBIN 29.5 pg (27.0-33.4); MEAN CORPUSCULAR HGB CONC 33.4 g/dL (32.0-36.0); MEAN CORPUSCULAR VOLUME 88 fl (80-97); MONOCYTES % (AUTO) 10.9 % (3-13); PLATELET COUNT 266 10^3/uL (150-450); RED BLOOD COUNT 4.29 10^6/uL (4.35-5.55); RED CELL DISTRIBUTION WIDTH 14.9 % (11.5-14.0); SEGMENTED NEUTROPHILS % (AUTO) 73.1 % (42-78); TOTAL CELLS COUNTED % (AUTO) 100 %; WHITE BLOOD COUNT 7.9 10^3/uL (4.0-10.5)
[2019-08-12 14:50] LABS: ALBUMIN 3.7 g/dL (3.5-5.0); ALKALINE PHOSPHATASE 102 U/L (38-126); ANION GAP 8 (5-19); ASPARTATE AMINO TRANSFERASE 22 U/L (17-59); BILIRUBIN,DIRECT 0.3 mg/dL (0.0-0.4); BILIRUBIN,TOTAL 0.9 mg/dL (0.2-1.3); BLOOD UREA NITROGEN 20 mg/dL (7-20); CALCIUM 9.1 mg/dL (8.4-10.2); CARBON DIOXIDE 28 mmol/L (22-30); CHLORIDE 103 mmol/L (98-107); GLUCOSE 96 mg/dL (75-110)
[2019-08-12 14:50] LABS: AMORPHOUS SEDIMENT,URINE TRACE /HPF; APPEARANCE,URINE CLOUDY; BILIRUBIN,URINE NEGATIVE (NEGATIVE); COLOR,URINE YELLOW; GLUCOSE, URINE NEGATIVE (NEGATIVE); KETONES,URINE NEGATIVE (NEGATIVE); LEUKOCYTE ESTERASE,URINE NEGATIVE (NEGATIVE); NITRITE,URINE NEGATIVE (NEGATIVE); PROTEIN,URINE NEGATIVE (NEGATIVE); URINE SPECIFIC GRAVITY 1.008; UROBILINOGEN,URINE NEGATIVE mg/dL (<2.0)
--- NOTE | 2019-08-12 15:47 | RADIOLOGY REPORT (SQ) ---
EXAM DESCRIPTION: CT ABD/PELVIS WITH IV ONLY COMPLETED DATE/TIME: 08/12/2019 3:27 pm REASON FOR STUDY: fall/hematuria COMPARISON: None. TECHNIQUE: CT scan of the abdomen and pelvis performed using helical scanning technique with dynamic intravenous contrast injection. No oral contrast. Images reviewed with lung, soft tissue, and bone windows. Reconstructed coronal and sagittal MPR images reviewed. Delayed images for evaluation of the urinary system also acquired. All images stored on PACS. All CT scanners at this facility use dose modulation, iterative reconstruction, and/or weight based d osing when appropriate to reduce radiation dose to as low as reasonably achievable (ALARA). [facility]: Dose Right [facility]: CareDose [facility]: Dose Right [facility]: Teradose 4D [facility]: Combat Stroke CONTRAST TYPE AND DOSE: contrast/concentration: Isovue 350.00 mg/ml; Total Contrast Delivered: 75.0 ml; Total Saline Delivered: 63.6 ml RENAL FUNCTION: BUN 20 creatinine 1.02. RADIATION DOSE: CT Rad equipment meets quality standard of care and radiation dose reduction techniq ues were employed. CTDIvol: 6.1 - 8.4 mGy. DLP: 857 mGy-cm.. LIMITATIONS: None. FINDINGS: LOWER CHEST: No significant findings. No nodules or infiltrates. LIVER: Normal size. 1.3 cm lesion in the superior right lobe adjacent to the dome of the diaphragm w ith early nodular enhancement. No dilated ducts. SPLEEN: Normal size. No focal lesions. PANCREAS: No masses. No significant calcifications. No adjacent inflammation or peripancreatic fluid collections. Pancreatic duct not dilated. GALLBLADDER: No identified stones by CT criteria. No inflammatory changes to suggest cholecystitis. ADRENAL GLANDS: No significant masses or asymmetry. RIGHT KIDNEY AND URETER: No solid masses. 4.5 mm calculus in the proximal ureter No hydronephrosi s or hydroureter. LEFT KIDNEY AND URETER: No solid masses. No significant calcifications. No hydronephrosis or hydr oureter. AORTA AND VESSELS: Vascular calcifications. No aneurysm. No dissection. Renal arteries, SMA, celiac without stenosis. RETROPERITONEUM: No retroperitoneal adenopathy, hemorrhage or masses. BOWEL AND PERITONEAL CAVITY: Sigmoid diverticuli. No masses or inflammatory changes. No free fluid o r peritoneal masses. APPENDIX: Normal. PELVIS: No mass. No free fluid. Normal bladder. ABDOMINAL WALL: No masses. No hernias. BONES: No significant or acute findings. Degenerative changes in the spine. 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 OTHER: No other significant finding. IMPRESSION: 1. 4.5 MM NONOBSTRUCTING CALCULUS IN THE PROXIMAL RIGHT URETER. 2. LESION IN THE SUPERIOR RIGHT LOBE OF THE LIVER WHICH MAY BE AN INCIDENTAL HEMANGIOMA. 3. SIGMOID DIVERTICULOSIS. 4. NO OTHER SIGNIFICANT OR ACUTE FINDING IN THE ABDOMEN OR PELVIS ON CT SCAN WITH IV CONTRAST. TECHNICAL DOCUMENTATION: JOB ID: [id number] Quality ID # [id number]: Final reports with documentation of one or more dose reduction techniques (e.g., Au tomated exposure control, adjustment of the mA and/or kV according to patient size, use of iterative reconstruction technique) 2010 [email or web address]- All Rights Reserved Reading location - IP/workstation name: [email or web address]
--- NOTE | 2019-08-12 16:01 | ER Document Report ---
ED Dizziness/Weakness - General Chief Complaint: General Weakness Stated Complaint: GENERAL WEAKNESS Time Seen by Provider: 08/12/19 13:01 Primary Care Provider: SHAYE NGUYEN MD [Primary Care Provider] - Follow up as needed Mode of Arrival: Medic Information source: Patient TRAVEL OUTSIDE OF THE [place] IN LAST 30 DAYS: No - HPI Notes: Patient is brought in by ambulance. Patient was at his doctor's office today for routine evaluation. When he got into the parking lot he lost his balance and fell to the ground. Patient and family deny any injuries in the fall. However the doctor's office personnel felt that patient was unsteady and recommend that he be brought to the emergency department. Family states that patient is chronically unsteady and that they do not believe he is any more unsteady today than usual. They also state that the patient does fall occasionally and that this is not new for him. They feel that patient is at his normal baseline state of health. Patient denies any concerns however he has d ementia and is a poor historian. Patient denies any pain or shortness of breath at this time. He denies any nausea. Patient symptoms of dizziness appear to be intermittent. They do not appear currently present. When they do get worse it is usually with standing. It is usually better with rest. There is no known radiation symptoms. Patient cannot characterize her symptoms otherwise. - Related Data Allergies/Adverse Reactions: No Known Allergies Allergy (Verified 07/25/16 10:43) Past Medical History - General Information source: Patient - Social History Smoking Status: Never Smoker Chew tobacco use (# tins/day): No Frequency of alcohol use: None Drug Abuse: None Family History: Reviewed & Not Pertinent Patient has suicidal ideation: No Patient has homicidal ideation: No - Past Medical History Cardiac Medical History: Reports: Hx Atrial Fibrillation, Hx Hypercholesterolemia, Hx Hypertension Renal/ Medical History: Denies: Hx Peritoneal Dialysis Past Surgical History: Reports: Hx Cardiac Catheterization, Hx Cardiac Surgery - bypass and stent, Hx Cholecystectomy, Hx Coronary Artery Bypass Graft, Hx Valve Replacement Review of Systems - Review of Systems -: Yes ROS unobtainable due to patient's medical condition - Patient has chronic confusion Physical Exam - Vital signs Vitals: Resp Pulse Ox 16 96 08/12/19 13:00 08/12/19 13:00 Interpretation: Normal - General General appearance: Appears well, Alert In distress: None - HEENT Head: Normocephalic, Atraumatic Eyes: Normal Pupils: PERRL - Respiratory Respiratory status: No respiratory distress Chest status: Nontender Breath sounds: Normal Chest palpation: Normal - Cardiovascular Rhythm: Regular Heart sounds: Normal auscultation Murmur: No - Abdominal Inspection: Normal Distension: No distension Bowel sounds: Normal Tenderness: Nontender Organomegaly: No organomegaly - Back Back: Normal, Nontender - Extremities General upper extremity: Normal inspection, Nontender, Normal color, Normal ROM, Normal temperature General lower extremity: Normal inspection, Nontender, Normal color, Normal ROM, Normal temperature, Normal weight bearing. No: Kelly's sign - Neurological Neuro grossly intact: Yes Cognition: Confused Orientation: Disoriented to place, Disoriented to time [place] Coma Scale Eye Opening: Spontaneous Rima Coma Scale Verbal: Confused Rima Coma Scale Motor: Obeys Commands Rima Coma Scale Total: 14 Speech: Normal Motor strength normal: LUE, RUE, LLE, RLE Sensory: Normal - Psychological Associated symptoms: Normal affect, Normal mood - Skin Skin Temperature: Warm Skin Moisture: Dry Skin Color: Normal Course - Re-evaluation Re-evalutation: 08/12/19 16:00 Patient had a fall in a doctor's parking lot. The concern was the patient may have some new dizziness or unsteadiness. Family states that they are not concerned about any new unsteadiness or dizziness and feel the patient is at baseline. Patient cannot contribute significantly due to his chronic confusion. Laboratories are unremarkable other than showing a large amount of blood in the urine. Therefore CT scan was obtained to make sure there is no traumatic injuries. This shows a nonobstructing kidney stone on the right which explains a large amount of hematuria. I did instruct the family about the liver lesion but that given the patient's age and current state of health that further pursuit of this would not be recommended and they agreed. - Vital Signs Vital signs: Temp Pulse Resp BP Pulse Ox 18 126/78 H 97 08/12/19 14:29 08/12/19 14:29 08/12/19 14:29 - Laboratory Result Diagrams: 08/12/19 13:50 08/12/19 13:50 Laboratory results interpreted by me: 08/12/19 08/12/19 13:50 14:25 RBC 4.29 L Hgb 12.6 L RDW 14.9 H Lymph % (Auto) 12.9 L Urine Blood LARGE H - Diagnostic Test Radiology reviewed: Image reviewed, Reports reviewed - EKG Interpretation by Me Rate: Normal - 73 Rhythm: A.Flutter Riley/QRS: RBBB Discharge - Discharge Clinical Impression: Dizziness, Right ureteral calculus Fall Qualifiers: Encounter type: initial encounter Qualified Code(s): W19.XXXA - Unspecified fall, initial encounter Condition: Stable Disposition: HOME, SELF-CARE Instructions: Weakness ([facility]) Referrals: SHAYE NGUYEN MD [Primary Care Provider] - Follow up in 3-5 days
--- NOTE | 2019-08-12 16:58 | EKG REPORT ---
SEVERITY:- ABNORMAL ECG - ATRIAL FLUTTER, A-RATE 254 RIGHT BUNDLE BRANCH BLOCK LATERAL INFARCT, OLD : Confirmed by: Johnny Reddy MD 12-Aug-2019 16:57:52
[2019-08-12 18:44] VITALS: BP 136/72
== END 2019-08-12 16:40 | disposition home or self-care (01) ==
LOC: ER 11:29
DX: N20.1 Calculus of ureter (principal); R42 Dizziness and giddiness; R53.1 Weakness; W18.30XA Fall on same level, unspecified, initial encounter; Y92.481 Parking lot as the place of occurrence of the external cause; I10 Essential (primary) hypertension
CPT/HCPCS: 36415; 70450; 74177; 80053; 81001; 84484; 85025; 93005; 93010; 99284

== ENCOUNTER → 2019-10-21 | Outpatient (CLI) | payer OTHER, MEDICARE ==
[2019-10-21 10:02] LABS: ANION GAP 8 (5-19); BLOOD UREA NITROGEN 25 mg/dL (7-20); CALCIUM 9.5 mg/dL (8.4-10.2); CARBON DIOXIDE 28 mmol/L (22-30); CHLORIDE 104 mmol/L (98-107); GLUCOSE 105 mg/dL (75-110); POTASSIUM 4.1 mmol/L (3.6-5.0)
== END ==
LOC: OD 09:12
PROVIDERS: ATTEND Internal Medicine Cardiovascular Disease
DX: I48.91 Unspecified atrial fibrillation (principal); R06.02 Shortness of breath
CPT/HCPCS: 36415; 80048; 83880